=== PATIENT | male | born 1985 | race Hispanic/Latino ===

== ENCOUNTER 2017-10-24 06:51 | Emergency (ER) | payer SELFPAY | END 2017-10-24 08:03 | disposition home or self-care (01) | LOC: EDH 06:51 | DX: M77.11 Lateral epicondylitis, right elbow (principal); Z72.0 Tobacco use; Z98.890 Other specified postprocedural states | CPT/HCPCS: 99281 ==

== ENCOUNTER 2018-05-10 09:47 | Emergency (ER) | payer OTHER ==
[2018-05-10] MEDS ORDERED: FLUORESCEIN SODIUM 1 STRIP STRIP ONE (09:57)
[2018-05-10] MEDS ORDERED: NA BORATE/BORIC AC/H2O/NACL 120 ML OPHTH IRRIG SOLN ONE (09:57)
[2018-05-10] MEDS ORDERED: ERYTHROMYCIN BASE 0.5% OPHTH OINT 1 GM TUBE ONE (10:06)
[2018-05-10] MEDS ORDERED: IPRATROPIUM/ALBUTEROL SULFATE 3 ML SOLUTION IH ONE (10:20)
== END 2018-05-10 10:24 | disposition home or self-care (01) ==
LOC: EDH 09:47
DX: S05.01XA Injury of conjunctiva and corneal abrasion without foreign body, right eye, initial encounter (principal); Z72.0 Tobacco use; X58.XXXA Exposure to other specified factors, initial encounter; Y93.89 Activity, other specified; Y92.89 Other specified places as the place of occurrence of the external cause; Y99.8 Other external cause status